=== PATIENT | female | born 1990 | race Caucasian/White ===

== ENCOUNTER 2023-07-21 17:09 | Inpatient (IN) | payer OTHER ==
[~2023-07-21] VITALS: Ht 162.6 cm; Wt 107.5 kg
[2023-07-21] MEDS: CALCIUM GLUCONATE 1GM PREMIX 50 ML IV ONE (17:30)
[2023-07-21 17:59] LABS: BASOPHILS % 0.2 % (0.0-2.0); HEMATOCRIT. 51.9 % (36.0-48.0); LYMPHOCYTES % 10.6 % (20.0-50.0); MEAN CORPUSCULAR HEMOGLOBIN 28.3 pg (28.0-32.0); MEAN CORPUSCULAR HGB CONC 32.7 g/dL (31.0-37.0); MEAN CORPUSCULAR VOLUME 86.7 fL (81.0-99.0); MEAN PLATELET VOLUME 7.8 fl (7.4-10.4); MONOCYTES % 4.9 % (2.0-8.0); NEUTROPHILS % 84.3 % (40.0-76.0); PLATELET 454 x1000/uL (130-400); RED BLOOD CELL COUNT 5.99 mill/uL (4.2-5.4); RED CELL DISTRIBUTION WIDTH 13.6 % (11.6-14.6); WHITE BLOOD COUNT 17.2 x1000/uL (4.5-11.0)
[2023-07-21 18:08] LABS: HCG SCREEN NEGATIVE
[2023-07-21 18:14] LABS: ALANINE AMINOTRANSFERASE 26 IU/L (10-49); ALBUMIN 5.5 g/dL (3.2-4.8); ASPARTATE AMINOTRANSFERASE 21 IU/L (<34); BILIRUBIN TOTAL 0.5 mg/dL (0.1-1.0); CALCIUM 9.6 mg/dL (8.7-10.4); CHLORIDE 101 mEq/L (98-107); CREATININE 1.3 mg/dL (0.6-1.0); GLUCOSE 247 mg/dL (70-105); POTASSIUM 4.5 mEq/L (3.5-5.1); PROTEIN TOTAL 8.9 g/dL (6.0-8.3); SODIUM 133 mEq/L (136-145); UREA NITROGEN BLOOD 13 mg/dL (9-23)
[2023-07-21 18:16] LABS: CARBON DIOXIDE < 10 mEq/L (21-32)
[2023-07-21] MEDS: ACETAMINOPHEN 325MG TABLET PO ONE (18:18)
[2023-07-21] MEDS: METOCLOPRAMIDE HCL 10MG/2ML VIAL IV ONE (18:18)
[2023-07-21] MEDS: SODIUM CHLORIDE 0.9% 1,000 ML IV ONE (18:18)
[2023-07-21 21:35] LABS: CALCIUM 9.5 mg/dL (8.7-10.4); CHLORIDE 106 mEq/L (98-107); CREATININE 1.1 mg/dL (0.6-1.0); GLUCOSE 224 mg/dL (70-105); POTASSIUM 4.5 mEq/L (3.5-5.1); SODIUM 133 mEq/L (136-145); UREA NITROGEN BLOOD 8 mg/dL (9-23)
[2023-07-21 21:36] LABS: CARBON DIOXIDE < 10 mEq/L (21-32)
[2023-07-21] MEDS: CEFTRIAXONE 1GM/50ML 50 ML IV NR (21:46)
[2023-07-21] MEDS: BLOOD SUGAR DIAGNOSTIC STRIP TEST SCH (22:00)
[2023-07-21 22:53] LABS: BG CARBOXYHEMOGLOBIN 0.5 % (0.5-1.5); BG DEOXYHEMOGLOBIN 1.3 % (0.0-5.0); BG FRACTION INSPIRED OXYGEN 36; BG HCO3 ACT 3.6 mmol/L (22.0-26.0); BG METHEMOGLOBIN 0.6 % (0.0-1.5); BG OXYGEN SATURATION 98.7 % (92.0-98.5); BG OXYHEMOGLOBIN 97.6 % (94.0-97.0); BG PCO2 11.4 mmHg (35.0-45.0); BG PH 7.117 (7.350-7.450); BG PO2 147.1 mmHg (75.0-100.0); BG SAMPLE SITE LEFT RADIAL; BG TOTAL HEMOGLOBIN 17.8 g/dL (12.0-18.0); BG VENT MODE NASAL CANNULA
[2023-07-21 23:28] LABS: CALCIUM 9.6 mg/dL (8.7-10.4); CHLORIDE 105 mEq/L (98-107); CREATININE 1.2 mg/dL (0.6-1.0); GLUCOSE 243 mg/dL (70-105); PHOSPHORUS 3.7 mg/dL (2.5-4.9); POTASSIUM 4.2 mEq/L (3.5-5.1); SODIUM 135 mEq/L (136-145); UREA NITROGEN BLOOD 11 mg/dL (9-23)
[2023-07-21 23:36] LABS: CARBON DIOXIDE < 10 mEq/L (21-32)
[2023-07-21 23:55] LABS: BASOPHILS % 0.3 % (0.0-2.0); DIFFERENTIAL COMMENT 0; HEMOGLOBIN. 17.4 g/dL (12.0-16.0); LYMPHOCYTES % 10.3 % (20.0-50.0); MEAN CORPUSCULAR HGB CONC 32.2 g/dL (31.0-37.0); MEAN CORPUSCULAR VOLUME 90.2 fL (81.0-99.0); MEAN PLATELET VOLUME 8.1 fl (7.4-10.4); MONOCYTES % 7.3 % (2.0-8.0); NEUTROPHILS % 82.1 % (40.0-76.0); PLATELET 406 x1000/uL (130-400); RED BLOOD CELL COUNT 5.99 mill/uL (4.2-5.4); RED CELL DISTRIBUTION WIDTH 14.1 % (11.6-14.6); WHITE BLOOD COUNT 19.3 x1000/uL (4.5-11.0)
[2023-07-21] MEDS: DEXT 5%/0.9% NACL 1,000 ML IV SCH (23:55)
[2023-07-22] VITALS (16 sets, daily range): BP systolic 113–146; BP diastolic 52–100; PULSE 105–117; RESP 20–30; TEMP 97.4–98.6
[2023-07-22] MEDS: INSULIN REGULAR 100U/100ML PMX 100 ML IV SCH (00:04)
[2023-07-22] MEDS: BLOOD SUGAR DIAGNOSTIC STRIP TEST SCH ×2 (00:30→09:00)
[2023-07-22] MEDS ORDERED: ACETAMINOPHEN 325MG TABLET PO PRN (00:30)
[2023-07-22] MEDS ORDERED: DEXTROSE 50% WATER 50ML SYRINGE IV PRN ×2 (00:30)
[2023-07-22] MEDS: DEXT 5%/0.45% NACL 1000ML 1,000 ML IV SCH (00:30)
[2023-07-22] MEDS ORDERED: HYDRALAZINE 20MG/ML VIAL IV PRN (00:30)
[2023-07-22] MEDS ORDERED: INSULIN REGULAR 100U/100ML PMX 100 ML IV SCH (00:30)
[2023-07-22] MEDS: KCL 20MEQ/100ML PREMIX 100 ML IV PRN (01:44)
[2023-07-22] MEDS: LABETALOL 5MG/ML SYR 20 MG/4 ML SYRINGE IV ONE (01:44)
[2023-07-22] MEDS: SODIUM BICARBONATE 8.4% 1 MEQ/ML 50ML SYR IV NR ×2 (02:00→11:40)
[2023-07-22] MEDS: SODIUM CHLORIDE 0.9% 1,000 ML IV ONE (02:17)
[2023-07-22 08:12] LABS: CALCIUM 8.6 mg/dL (8.7-10.4); CHLORIDE 107 mEq/L (98-107); CREATININE 1.1 mg/dL (0.6-1.0); GLUCOSE 230 mg/dL (70-105); PHOSPHORUS 1.8 mg/dL (2.5-4.9); POTASSIUM 3.2 mEq/L (3.5-5.1); SODIUM 137 mEq/L (136-145); UREA NITROGEN BLOOD 11 mg/dL (9-23)
[2023-07-22 09:06] LABS: CARBON DIOXIDE < 10 mEq/L (21-32)
[2023-07-22 10:49] LABS: CALCIUM 8.1 mg/dL (8.7-10.4); CHLORIDE 109 mEq/L (98-107); CREATININE 0.9 mg/dL (0.6-1.0); GLUCOSE 229 mg/dL (70-105); POTASSIUM 3.3 mEq/L (3.5-5.1); SODIUM 136 mEq/L (136-145); UREA NITROGEN BLOOD 8 mg/dL (9-23)
[2023-07-22 10:55] LABS: CARBON DIOXIDE < 10 mEq/L (21-32); PHOSPHORUS 0.7 mg/dL (2.5-4.9)
[2023-07-22] MEDS: ENOXAPARIN 30MG/0.3ML SYR SUBCUT SCH (11:31)
[2023-07-22] MEDS: FAMOTIDINE 20MG/2ML VIAL IV SCH (11:32)
[2023-07-22] MEDS: KCL 20MEQ/100ML PREMIX 100 ML IV NR (11:38)
[2023-07-22] MEDS ORDERED: IPRATROPIUM/ALBUTEROL 0.5-3(2.5)MG/3ML NEB HHN PRN (12:45)
[2023-07-22] MEDS: POTASSIUM PHOSPHATE 30 MMOL in DEXT 5% WATER 490 ML IV NR (13:08)
[2023-07-22] MEDS: CEFTRIAXONE 1GM/50ML 50 ML IV SCH (13:10)
[2023-07-22 17:03] LABS: CALCIUM 8.1 mg/dL (8.7-10.4); CARBON DIOXIDE 13 mEq/L (21-32); CHLORIDE 112 mEq/L (98-107); CREATININE 0.8 mg/dL (0.6-1.0); GLUCOSE 217 mg/dL (70-105); POTASSIUM 3.1 mEq/L (3.5-5.1); SODIUM 138 mEq/L (136-145); UREA NITROGEN BLOOD 6 mg/dL (9-23)
[2023-07-22 17:18] LABS: PHOSPHORUS 0.5 mg/dL (2.5-4.9)
[2023-07-22] MEDS: ACETAMINOPHEN 325MG TABLET PO PRN (20:25)
[2023-07-22 21:08] LABS: CALCIUM 8.3 mg/dL (8.7-10.4); CARBON DIOXIDE 13 mEq/L (21-32); CHLORIDE 116 mEq/L (98-107); CREATININE 0.8 mg/dL (0.6-1.0); GLUCOSE 154 mg/dL (70-105); POTASSIUM 3.1 mEq/L (3.5-5.1); SODIUM 141 mEq/L (136-145)
[2023-07-22 21:12] LABS: UREA NITROGEN BLOOD < 5 mg/dL (9-23)
[2023-07-22 21:16] LABS: PHOSPHORUS < 0.3 mg/dL (2.5-4.9)
[2023-07-23] VITALS (29 sets, daily range): BP systolic 86–146; BP diastolic 54–100; PULSE 103–120; RESP 15–30; TEMP 97–98.4
[2023-07-23 00:53] LABS: CALCIUM 7.9 mg/dL (8.7-10.4); CARBON DIOXIDE 15 mEq/L (21-32); CHLORIDE 117 mEq/L (98-107); CREATININE 0.7 mg/dL (0.6-1.0); GLUCOSE 105 mg/dL (70-105); SODIUM 141 mEq/L (136-145); UREA NITROGEN BLOOD 6 mg/dL (9-23)
[2023-07-23 00:57] LABS: PHOSPHORUS 0.5 mg/dL (2.5-4.9); POTASSIUM 2.8 mEq/L (3.5-5.1)
[2023-07-23] MEDS: MAGNESIUM 2 G PREMIX 50 ML IV NR (02:00)
[2023-07-23] MEDS: POTASSIUM CHLORIDE 20MEQ TABLET SR PO NR ×2 (02:00→11:40)
[2023-07-23] MEDS: ONDANSETRON HCL 4MG/2ML INJ IV PRN (02:50)
[2023-07-23] MEDS: POTASSIUM PHOSPHATE 30 MMOL in SODIUM CHLORIDE 0.9% 490 ML IV NR ×2 (03:30→18:40)
[2023-07-23 05:23] LABS: BASOPHILS % 0.2 % (0.0-2.0); HEMATOCRIT. 39.7 % (36.0-48.0); HEMOGLOBIN. 13.8 g/dL (12.0-16.0); LYMPHOCYTES % 7.7 % (20.0-50.0); MEAN CORPUSCULAR HEMOGLOBIN 29.6 pg (28.0-32.0); MEAN CORPUSCULAR HGB CONC 34.8 g/dL (31.0-37.0); MEAN CORPUSCULAR VOLUME 85.3 fL (81.0-99.0); MEAN PLATELET VOLUME 8.1 fl (7.4-10.4); MONOCYTES % 9.1 % (2.0-8.0); PLATELET 305 x1000/uL (130-400); RED BLOOD CELL COUNT 4.66 mill/uL (4.2-5.4); RED CELL DISTRIBUTION WIDTH 13.4 % (11.6-14.6); WHITE BLOOD COUNT 16.2 x1000/uL (4.5-11.0)
[2023-07-23 05:58] LABS: CALCIUM 8.2 mg/dL (8.7-10.4); CARBON DIOXIDE 15 mEq/L (21-32); CHLORIDE 113 mEq/L (98-107); CREATININE 0.7 mg/dL (0.6-1.0); GLUCOSE 218 mg/dL (70-105); SODIUM 141 mEq/L (136-145)
[2023-07-23 06:02] LABS: UREA NITROGEN BLOOD < 5 mg/dL (9-23)
[2023-07-23 06:03] LABS: PHOSPHORUS 0.8 mg/dL (2.5-4.9)
[2023-07-23 09:18] LABS: CALCIUM 7.8 mg/dL (8.7-10.4); CARBON DIOXIDE 13 mEq/L (21-32); CHLORIDE 115 mEq/L (98-107); CREATININE 0.6 mg/dL (0.6-1.0); GLUCOSE 193 mg/dL (70-105); PHOSPHORUS 1.4 mg/dL (2.5-4.9); POTASSIUM 3.3 mEq/L (3.5-5.1); SODIUM 142 mEq/L (136-145)
[2023-07-23 09:26] LABS: UREA NITROGEN BLOOD < 5 mg/dL (9-23)
[2023-07-23] MEDS: POTASSIUM PHOSPHATE 30 MMOL in DEXT 5% WATER 490 ML IV NR (12:46)
[2023-07-23 12:53] LABS: CALCIUM 7.7 mg/dL (8.7-10.4); CARBON DIOXIDE 17 mEq/L (21-32); CHLORIDE 115 mEq/L (98-107); CREATININE 0.6 mg/dL (0.6-1.0); GLUCOSE 163 mg/dL (70-105); SODIUM 142 mEq/L (136-145)
[2023-07-23 13:11] LABS: UREA NITROGEN BLOOD < 5 mg/dL (9-23)
[2023-07-23 13:16] LABS: POTASSIUM 2.6 mEq/L (3.5-5.1)
[2023-07-23 13:17] LABS: PHOSPHORUS 0.8 mg/dL (2.5-4.9)
[2023-07-23] MEDS: INSULIN REGULAR 100U/100ML PMX 100 ML IV SCH (15:11)
[2023-07-23] MEDS: KCL 20MEQ/100ML PREMIX 100 ML IV SCH (15:18)
[2023-07-23 17:42] LABS: CALCIUM 7.5 mg/dL (8.7-10.4); CARBON DIOXIDE 18 mEq/L (21-32); CHLORIDE 114 mEq/L (98-107); CREATININE 0.6 mg/dL (0.6-1.0); GLUCOSE 233 mg/dL (70-105); PHOSPHORUS 1.6 mg/dL (2.5-4.9); POTASSIUM 3.5 mEq/L (3.5-5.1); SODIUM 141 mEq/L (136-145)
[2023-07-23 17:47] LABS: UREA NITROGEN BLOOD < 5 mg/dL (9-23)
[2023-07-23] MEDS: DEXT IV SCH (18:41)
[2023-07-23] MEDS: POTASSIUM CHLORIDE IV SCH (18:41)
[2023-07-23] MEDS: NACL IV SCH (18:41)
[2023-07-23] MEDS: MAGNESIUM/ALUMINUM HYDROXIDE/SIMETHICONE 30ML UDC PO PRN (19:01)
[2023-07-23 23:43] LABS: CARBON DIOXIDE 19 mEq/L (21-32); CHLORIDE 113 mEq/L (98-107); PHOSPHORUS 1.4 mg/dL (2.5-4.9); POTASSIUM 3.7 mEq/L (3.5-5.1); SODIUM 141 mEq/L (136-145)
[2023-07-24] VITALS (29 sets, daily range): BP systolic 118–142; BP diastolic 69–105; PULSE 91–121; RESP 12–32; TEMP 98.2–99.1
[2023-07-24] MEDS: POTASSIUM PHOSPHATE 30 MMOL in SODIUM CHLORIDE 0.9% 490 ML IV NR ×2 (03:00→11:58)
[2023-07-24 06:02] LABS: CALCIUM 8.5 mg/dL (8.7-10.4); CARBON DIOXIDE 21 mEq/L (21-32); CHLORIDE 111 mEq/L (98-107); CREATININE 0.5 mg/dL (0.6-1.0); GLUCOSE 154 mg/dL (70-105); PHOSPHORUS 1.3 mg/dL (2.5-4.9); POTASSIUM 3.6 mEq/L (3.5-5.1); SODIUM 142 mEq/L (136-145)
[2023-07-24 06:08] LABS: UREA NITROGEN BLOOD < 5 mg/dL (9-23)
[2023-07-24] MEDS: ENOXAPARIN 40MG/0.4ML SYR SUBCUT SCH (08:35)
[2023-07-24] MEDS ORDERED: DEXTROSE 50% WATER 50ML SYRINGE IV PRN (09:15)
[2023-07-24] MEDS: INSULIN GLARGINE 100 UNITS/ML SUBCUT SCH (09:52)
[2023-07-24] MEDS: BLOOD SUGAR DIAGNOSTIC STRIP TEST SCH (11:35)
[2023-07-24] MEDS: INSULIN LISPRO 100 UNITS/ML SUBCUT SCH (12:05)
[2023-07-24] MEDS ORDERED: HYDRALAZINE 10 MG in SODIUM CHLORIDE 0.9% 49.5 ML IV PRN (16:15)
[2023-07-25] VITALS: BP 114/71; PULSE 90; RESP 20; TEMP 97.7
[2023-07-25 04:00] VITALS: BP 110/71; PULSE 93; RESP 20; TEMP 97.2
[2023-07-25 07:43] LABS: BASOPHILS % 0.5 % (0.0-2.0); EOSINOPHILS % 1.2 % (0.0-5.0); HEMATOCRIT. 39.5 % (36.0-48.0); HEMOGLOBIN. 13.3 g/dL (12.0-16.0); LYMPHOCYTES % 41.8 % (20.0-50.0); MEAN CORPUSCULAR HEMOGLOBIN 29.2 pg (28.0-32.0); MEAN CORPUSCULAR HGB CONC 33.6 g/dL (31.0-37.0); MEAN PLATELET VOLUME 7.9 fl (7.4-10.4); MONOCYTES % 11.1 % (2.0-8.0); NEUTROPHILS % 45.4 % (40.0-76.0); PLATELET 279 x1000/uL (130-400); RED BLOOD CELL COUNT 4.54 mill/uL (4.2-5.4); RED CELL DISTRIBUTION WIDTH 13.7 % (11.6-14.6)
[2023-07-25 08:00] VITALS: BP 122/81; PULSE 83; RESP 19; TEMP 97.3
[2023-07-25 08:49] LABS: CALCIUM 8.3 mg/dL (8.7-10.4); CARBON DIOXIDE 25 mEq/L (21-32); CHLORIDE 107 mEq/L (98-107); CREATININE 0.5 mg/dL (0.6-1.0); GLUCOSE 188 mg/dL (70-105); PHOSPHORUS 2.2 mg/dL (2.5-4.9); POTASSIUM 3.8 mEq/L (3.5-5.1); SODIUM 141 mEq/L (136-145)
[2023-07-25 08:50] LABS: UREA NITROGEN BLOOD < 5 mg/dL (9-23)
[2023-07-25] MEDS: INSULIN GLARGINE 100 UNITS/ML SUBCUT SCH (10:00)
[2023-07-25 12:42] VITALS: BP 133/77; PULSE 80; TEMP 97.1; O2SAT 97
== END 2023-07-25 13:23 | disposition home or self-care (01) | DRG 637 ==
LOC: ER 17:09 → MICUSO 22:00 → EDBEDREQSVC 22:14 → EDBEDREQTM 22:14 → EDBEDREQ 22:14 → ER 07-22 08:27 → 6EST 07-24 16:02
PROVIDERS: ADMIT Internal Medicine; ATTEND Internal Medicine
DX: E11.10 Type 2 diabetes mellitus with ketoacidosis without coma (principal); J96.00 Acute respiratory failure, unspecified whether with hypoxia or hypercapnia; N17.9 Acute kidney failure, unspecified; R65.10 Systemic inflammatory response syndrome (SIRS) of non-infectious origin without acute organ dysfunction; E83.39 Other disorders of phosphorus metabolism; E87.8 Other disorders of electrolyte and fluid balance, not elsewhere classified; I10 Essential (primary) hypertension; D64.9 Anemia, unspecified; E87.6 Hypokalemia; R00.0 Tachycardia, unspecified; E86.0 Dehydration
CPT/HCPCS: 36415; 36600; 71045; 76700; 80048; 80051; 80053; 82010; 82375; 82805; 82962; 83036; 83735; 83930; 84100; 84145; 84703; 85025; 99285; J0610; J0696; J1650; J1815; J2405; J2765; J3475; J3480; J3490; J7030; J7040; J7042; J7060